=== PATIENT | female | born 1990 | race Caucasian/White ===

== ENCOUNTER 2024-01-01 06:32 | Emergency (ER) | payer OTHER ==
[2024-01-01 07:15] VITALS: RESP 20; TEMP 97; O2SAT 97
[2024-01-01 07:41] LABS: Group A Strep NOT DETECTED (NEGATIVE)
[2024-01-01 07:53] VITALS: BP 107/64; PULSE 71
[2024-01-01 07:56] LABS: INFLUENZA A NEGATIVE (NEGATIVE); INFLUENZA B NEGATIVE (NEGATIVE); RESPIRATORY SYNCTIAL VIRUS NEGATIVE (NEGATIVE); SARS-CoV-2 Xpert Express NEGATIVE (NEGATIVE)
--- NOTE | 2024-01-01 08:07 | ERPHSYRPT ---
- History of Present Illness Time Seen by Provider: 01/01/24 07:05 Source: patient Exam Limitations: no limitations Patient Subjective Stated Complaint: pt states that she had strep 2 weeks ago and finished antibiotics and is still having symptoms Triage Nursing Assessment: pt ambulated into the er; pt is axo x4; c/o sorethroat; pt states 12/03 to throat; mucus membrane pink and moist; c/o earache; no redness to middle ear; dry hacking cough present; no respiratory distress present; skin PDW; vitals wnl Physician History: 33-year-old female presented in the ER with cough congestion and URI symptoms for the last 2 weeks. Patient has finished course of steroid and antibiotics. Still complaining of soreness in the throat, earache head dry hacking cough. No fever or chills reported. Denies any difficulty breathing but has aches and pains all over. Son has similar symptoms of sore throat. No abdominal pain nausea or vomiting Allergies/Adverse Reactions: sulfamethoxazole [From Bactrim] Allergy (Verified 01/01/24 06:55) Rash trimethoprim [From Bactrim] Allergy (Verified 01/01/24 06:55) Rash Home Medications: No Reportable Medications [No Reported Medications] 01/01/24 [History] Hx Tetanus, Diphtheria Vaccination/Date Given: Yes Hx Influenza Vaccination/Date Given: No Hx Pneumococcal Vaccination/Date Given: No Travel Risk - International Travel Have you traveled outside of the country in past 3 weeks: No - Coronavirus Screening Are you exhibiting any of the following symptoms?: No Close contact with a COVID-19 positive Pt in past 14-21 Days: No - Vaccine Status Have you recieved a Covid-19 vaccination: Yes 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: Tout - Vaccination Dates Date of 2cond Vaccination (if applicable): 2020 - Review of Systems Constitutional: Fatigue, Weakness Eyes: No Symptoms Ears, Nose, & Throat: Ear Pain, Nose Congestion, Throat Pain, Throat Swelling Respiratory: Cough Cardiac: No Symptoms Abdominal/Gastrointestinal: No Symptoms Genitourinary Symptoms: No Symptoms Musculoskeletal: Myalgias Neurological: No Symptoms Psychological: No Symptoms Hematologic/Lymphatic: No Symptoms Immunological/Allergic: No Symptoms - Past Medical History Pertinent Past Medical History: No - Past Surgical History Past Surgical History: Yes Musculoskeletal: Orthopedic Surgery Other Surgical History: finger reattached - Social History Smoking Status: Never smoker Exposure to second hand smoke: Yes Drug Use: none Patient Lives Alone: No - Female History Hx Now: No - Nursing Vital Signs Nursing Vital Signs: Initial Vital Signs Temperature 97 F 01/01/24 06:56 Pulse Rate 82 01/01/24 06:56 Respiratory Rate 20 01/01/24 06:56 Blood Pressure 110/78 01/01/24 06:56 O2 Sat by Pulse Oximetry 97 01/01/24 06:56 Pain Scale Pain Intensity 2 - Physical Exam General Appearance: no apparent distress, alert Eye Exam: PERRL/EOMI Ears, Nose, Throat Exam: moist mucous membranes, pharyngeal erythema Neck Exam: normal inspection, non-tender, supple, full range of motion, No meningismus Respiratory Exam: normal breath sounds, lungs clear Cardiovascular Exam: regular rate/rhythm, normal heart sounds Gastrointestinal/Abdomen Exam: soft, normal bowel sounds, No tenderness Extremity Exam: normal inspection, normal range of motion Neurologic Exam: alert, oriented x 3, cooperative, 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 Patient has finished course of antibiotics and steroids. She is still having soreness in the throat, dry hacking cough and earache. She has not bilateral clear lungs. She is afebrile. Not in any distress. Has negative flu COVID RSV and strep. I believe patient has viral URI/pharyngitis, recommended supportive care and outpatient follow-up. Discussed signs symptoms worsening return to ER which she seems understanding. Stable for discharge. Blood Culture(s) Obtained: No Antibiotics given: No Counseled pt/family regarding: lab results, diagnosis, need for follow-up Medical Desision Making - Diagnostic Testing Diagnostic test were ordered, analyzed, and reviewed by me: Yes - Departure Departure Disposition: Home Clinical Impression: Viral pharyngitis Condition: Stable Critical Care Time: No Referrals: BOAZ STRATTON, [employer] [Primary Care Provider] - Follow up with PCP 2 days Instructions: Viral Pharyngitis (DC) Additional Instructions: Take Tylenol/ibuprofen as needed. Follow-up with primary care for reevaluation. Return to ER for any worsening.
== END 2024-01-01 08:20 | disposition home or self-care (01) ==
LOC: ED 06:32
DX: J02.8 Acute pharyngitis due to other specified organisms (principal); Z20.828 Contact with and (suspected) exposure to other viral communicable diseases
CPT/HCPCS: 0241U; 87651; 99282

== ENCOUNTER 2024-06-22 16:13 | Emergency (ER) | payer OTHER ==
[2024-06-22 16:21] VITALS: BP 150/82; PULSE 65; RESP 18; TEMP 98.1; O2SAT 98
[2024-06-22] MEDS ORDERED: BACIGUENT PACKET ONE (16:31)
--- NOTE | 2024-06-22 16:32 | ERPHSYRPT ---
- History of Present Illness Time Seen by Provider: 06/22/24 16:17 Source: patient Exam Limitations: no limitations Patient Subjective Stated Complaint: Pt states "I was walking and I tripped over a stick and some of it is still in my foot." Triage Nursing Assessment: Pt presented alert and oriented X 3, skin wpd. PT ambulate with a limp. PT has wood impaled in right foot between great toe and second digit. Physician History: Patient has foot injury between her first and second right toe. Patient states that she was walking to her mailbox and stubbed her toe on a stick. Patient still has a piece of wooden stick in her foot. Associated foot laceration. No other injuries, patient is up-to-date on her tetanus shot. No history of diabetes or diabetic foot injuries. Allergies/Adverse Reactions: sulfamethoxazole [From Bactrim] Allergy (Verified 01/01/24 06:55) Rash trimethoprim [From Bactrim] Allergy (Verified 01/01/24 06:55) Rash Hx Tetanus, Diphtheria Vaccination/Date Given: Yes Hx Influenza Vaccination/Date Given: Yes Hx Pneumococcal Vaccination/Date Given: No Immunizations Up to Date: No Travel Risk - International Travel Have you traveled outside of the country in past 3 weeks: No - Emerging Infectious Disease Are you exhibiting symptoms associated with any current EIDs: No - Past Medical History Pertinent Past Medical History: No - Past Surgical History Past Surgical History: Yes Musculoskeletal: Orthopedic Surgery Other Surgical History: finger reattached - Female History Hx Last Menstrual Period: 05/17/2024 Hx Now: No - Social History Smoking Status: Never smoker Exposure to second hand smoke: Yes Drug Use: none Patient Lives Alone: No - Social Determinants of Health Will the patient participate in the screening: Declined to provide - Nursing Vital Signs Nursing Vital Signs: Initial Vital Signs Temperature 98.1 F 06/22/24 16:17 Pulse Rate 65 06/22/24 16:17 Respiratory Rate 18 06/22/24 16:17 Blood Pressure 150/82 06/22/24 16:17 O2 Sat by Pulse Oximetry 98 06/22/24 16:17 Pain Scale Pain Intensity 4 - Physical Exam SpO2: 98 Comments: 06/22/24 16:35 Review of Systems Constitutional: Negative for fever. HENT: Negative for congestion. Respiratory: Negative for shortness of breath. Cardiovascular: Negative for chest pain. Gastrointestinal: Negative for abdominal pain. Genitourinary: Negative for dysuria. Musculoskeletal: Negative for back pain. Skin: Negative for rash. Neurological: Negative for headaches. Psychiatric/Behavioral: Negative for behavioral problems. All other systems reviewed and are negative. Physical Exam Vitals signs and nursing note reviewed. Constitutional: Appearance: Patient is well-developed. HENT: Head: Normocephalic and atraumatic. Eyes: Conjunctiva/sclera: Conjunctivae normal. Neck: Musculoskeletal: Normal range of motion. Trachea: No tracheal deviation. Cardiovascular: Rate and Rhythm: Normal rate. Pulmonary: Effort: Pulmonary effort is normal. No respiratory distress. Abdominal: Palpations: Abdomen is soft. Musculoskeletal: General: 0.5 cm piece of wooden stick in between patient's great toe and second toe. Associated laceration with the piece of wood. Less than 0.3 cm diameter. No obvious deformity, sensation intact, 2+ capillary refill, 2 point tactile discrimination intact. 5 out of 5 strength. Full range of motion without pain. Compartments are soft, nontender. Overlying skin shows no tenting, bruising, ecchymosis. Skin: General: Skin is warm and dry. Neurological/ Psychiatric: Mental Status: Mental status, behavior, interaction with environment is appropriate for patient's age and condition Procedures - Additional Procedures Progress: Foreign Body right foot Performed by: Jacinto Man MD Authorized by: Jacinto Man MD Consent: Verbal consent obtained. Risks and benefits: risks, benefits and alternatives were discussed Patient identity confirmed: Verbally Time out: Immediately prior to procedure a "time out" was called to verify the correct patient, procedure, equipment, pharmacy retail support specialist and site/side marked as required. Body area: right foot, between first and second digit Localization method: visualized Removal mechanism: Tweezers Complexity: Simple Objects recovered: 1 Post-procedure assessment: foreign body removed Patient tolerance: Patient tolerated the procedure well with no immediate complications - Course Nursing assessment & vital signs reviewed: Yes Ordered Tests: Medication Summary Discontinued Medications Generic Name Dose Route Start Last Admin Trade Name Freq PRN Reason Stop Dose Admin Bacitracin Zinc Confirm 06/22/24 16:31 Bacitracin Packet 1 Each Pckt Administered 06/22/24 16:32 Dose 1 each .ROUTE .STK-MED ONE - Progress Progress: improved Progress Note: 08/30/24 16:39 Foreign body removed as above. See procedure note for full details. Patient is up-to-date on tetanus shot. Will give patient antibiotics, Keflex going home. We will not suture the wound and it is it is only 0.3 cm and I do want to leave it open for drainage. I did I did discuss that there could be additional foreign bodies that we did not see or visualize. These will work themselves out on their own and patient should be covered with antibiotic and tetanus shot. Patient states her understanding of retained foreign body. I did discuss risks and benefits of an x-ray today including radiation, retained foreign body. Given that the foreign body is wood, most likely would not show up on x-ray. Therefore, after risks and benefit discussion with the patient, she did eventually declined an x-ray today. Wound was thoroughly cleaned after removal of foreign body. Plan for close follow-up with PCP. Return here sooner for new or changing symptoms. Counseled pt/family regarding: diagnosis, need for follow-up - Departure Departure Disposition: Home Clinical Impression: Foreign body in foot, Right foot injury Condition: Stable Critical Care Time: No Referrals: BOAZ STRATTON [employer] [Primary Care Provider] - Follow up/PCP as directed Prescriptions: Cephalexin Mh 500 mg [Keflex 500 mg] 500 mg PO BID 10 Days #20 cap
[2024-06-22] MEDS: BACIGUENT PACKET TP ONE (16:44)
== END 2024-06-22 16:50 | disposition home or self-care (01) ==
LOC: ED 16:13
DX: S91.321A Laceration with foreign body, right foot, initial encounter (principal); W22.09XA Striking against other stationary object, initial encounter; Y93.01 Activity, walking, marching and hiking; Y92.007 Garden or yard of unspecified non-institutional (private) residence as the place of occurrence of the external cause; Z79.899 Other long term (current) drug therapy
CPT/HCPCS: 99281; A9270-GY